=== PATIENT | male | born 2000 ===

== ENCOUNTER → 2021-01-08 | Outpatient (CLI) | payer OTHER ==
[2021-01-08 18:23] LABS: Percent Saturation 40.5 % (20.0-50.0)
[2021-01-08 18:26] LABS: Thyroid Stimulating Hormone 0.851 uIU/mL (0.360-4.800)
== END | disposition home or self-care (01) ==
LOC: LAB SHORT 16:53
PROVIDERS: Nurse Practitioner Family
DX: F32.A Depression, unspecified (principal)
CPT/HCPCS: 82306; 82728; 83540; 83550; 84443